=== PATIENT | female | born 1960 | race Caucasian/White ===

== ENCOUNTER 2017-03-23 01:43 | Inpatient (IN) ==
[2017-03-16 12:01] LABS: URINE MICRO REVIEW NEEDED? NO; URINE SOURCE CLEAN CATCH
[2017-03-16 12:01] LABS: MANUAL DIFF NEEDED? NO
--- NOTE | 2017-03-16 12:07 | EKG Report ---
Test Performed on : 03/16/2017 11:01:47 AM Test Reason : PAT Blood Pressure : / mmHG Vent. Rate : 079 BPM Atrial Rate : 079 BPM P-R Int : 160 ms QRS Dur : 084 ms QT Int : 388 ms P-R-T Axes : 051 066 073 degrees QTc Int : 444 ms Normal sinus rhythm. Normal ECG When compared with ECG of 06-MAY-2015 15:12, Nonspecific T wave abnormality in AVL Persistant T wave inversion in V1-V2 - no change Confirmed by Roland Thompson DO ([id number]) on 03/16/2017 6:04:24 PM
[2017-03-16 12:10] LABS: BASO% 0.4 % (0.0-0.8); EOS# 0.03 X1000 (0.0-0.7); EOS% 0.5 % (0.0-10.0); HEMATOCRIT 37.4 % (37.0-47.0); HEMOGLOBIN 12.4 g/dL (12.0-16.0); LYMPH% 21.2 % (20.5-51.1); MCH 32.2 PG (27-31); MCHC 33.2 g/dL (33-37); MCV 97.1 FL (81-99); MONO# 0.89 X1000 (0.11-0.59); MONO% 15.7 % (1.7-9.3); MPV 8.5 FL (7.4-10.4); NEUT% 62.2 % (42.2-75.2); PLT 303 X1000 (130-400); RBC 3.85 XMIL (4.2-5.4)
[2017-03-16 12:13] LABS: BILIRUBIN URINE NEGATIVE (NEGATIVE); BLOOD URINE NEGATIVE (NEGATIVE); COLOR STRAW; GLUCOSE URINE NEGATIVE (NEGATIVE); LEUKOCYTES URINE NEGATIVE (NEGATIVE); NITRITE URINE NEGATIVE (NEGATIVE); PROTEIN URINE NEGATIVE (NEGATIVE); SP GRAVITY URINE 1.006; TURBIDITY URINE CLEAR (CLEAR); UROBILINOGEN URINE NORMAL (NORMAL)
[2017-03-16 12:14] LABS: UR EPITHELIAL CELLS <10 /HPF (<10); URINE BACTERIA NEGATIVE /HPF; URINE RBC <10 /HPF (<10); URINE WBC <10 /HPF (<10)
[2017-03-16 12:28] LABS: AGAP 11; BUN 11 mg/dL (8-22); CALCIUM 8.9 mg/dL (8.8-10.2); CHLORIDE 98 mmol/L (98-107); COSMO 278; SODIUM 140 mmol/L (136-145); TCO2 31 mmol/L (25-35)
[2017-03-16 16:46] LABS: INR 0.96; PTT 24.1 Seconds (22.0-36.0)
[2017-03-23] MEDS ORDERED: COLACE ONE (06:51)
[2017-03-23] MEDS ORDERED: REGLAN ONE (06:52)
[2017-03-23] MEDS ORDERED: PEPCID ONE (06:52)
[2017-03-23] MEDS ORDERED: KEFZOL 1 GM/D5W 1 GM/50 ML IVPB ONE (06:52)
[2017-03-23] MEDS ORDERED: CELEBREX ONE (06:52)
[2017-03-23] MEDS ORDERED: LYRICA ONE (06:52)
[2017-03-23] MEDS ORDERED: LR 1,000 ML ONE ×2 (06:52→07:23)
[2017-03-23] MEDS ORDERED: DIPRIVAN 1% 500 MG/50 ML BOTTLE ONE (07:09)
[2017-03-23] MEDS ORDERED: XYLOCAINE-MPF 2% ONE (07:17)
[2017-03-23] MEDS ORDERED: SODIUM CHLORIDE 0.9% ONE (07:22)
[2017-03-23] MEDS ORDERED: TORADOL ONE (07:22)
[2017-03-23] MEDS ORDERED: DURAMORPH ONE (07:22)
[2017-03-23] MEDS ORDERED: CYKLOKAPRON 1,000 MG/NS 1,000 MG/100 ML IVPB ONE ×2 (07:22→07:24)
[2017-03-23] MEDS ORDERED: VANCOMYCIN ONE (07:22)
[2017-03-23] MEDS ORDERED: MARCAINE 0.25% PF ONE (07:22)
[2017-03-23] MEDS ORDERED: EXPAREL 1.3% ONE (07:23)
[2017-03-23] MEDS ORDERED: NEOSPORIN G.U. IRRIGANT ONE (07:23)
[2017-03-23] MEDS ORDERED: FENTANYL ONE (07:25)
[2017-03-23] MEDS ORDERED: BYSTOLIC PO ONE (07:30)
[2017-03-23] MEDS ORDERED: ROBINUL ONE (09:29)
[2017-03-23] MEDS ORDERED: OFIRMEV 1000 MG/ISOTONIC SOLN 1,000 MG/100 ML BOTTLE ONE (09:41)
[2017-03-23 09:50] LABS: URINE CULTURE NEEDED? NO; URINE MICRO REVIEW NEEDED? NO; URINE SOURCE CATH
[2017-03-23] MEDS ORDERED: ZOFRAN ONE (09:50)
[2017-03-23] MEDS ORDERED: DECADRON ONE (09:50)
[2017-03-23 09:53] LABS: BILIRUBIN URINE NEGATIVE (NEGATIVE); BLOOD URINE NEGATIVE (NEGATIVE); COLOR STRAW; GLUCOSE URINE NEGATIVE (NEGATIVE); LEUKOCYTES URINE NEGATIVE (NEGATIVE); NITRITE URINE NEGATIVE (NEGATIVE); PH URINE 6.5; PROTEIN URINE NEGATIVE (NEGATIVE); SP GRAVITY URINE 1.002; TURBIDITY URINE CLEAR (CLEAR); UROBILINOGEN URINE NORMAL (NORMAL)
[2017-03-23 09:54] LABS: UR EPITHELIAL CELLS <10 /HPF (<10); URINE BACTERIA NEGATIVE /HPF; URINE RBC <10 /HPF (<10); URINE WBC <10 /HPF (<10)
[2017-03-23] MEDS ORDERED: NS 1,000 ML ONE (10:36)
[2017-03-23] MEDS ORDERED: MORPHINE ONE (11:00)
[2017-03-23] MEDS ORDERED: PHENERGAN ONE (11:04)
--- NOTE | 2017-03-23 11:21 | Diag Imaging Result Doc PS360 ---
EXAM: KNEE 1-2 VIEWS-LEFT HISTORY: right total knee TECHNIQUE: Right knee AP and lateral portable at 1102 COMMENT: There is been total knee arthroplasty. There appears to be appropriate alignment and otherwise there is no evidence of acute bony disease. IMPRESSION: Postsurgical change. Electronically signed by Zeke Yoo 03/23/2017 11:19 AM
[2017-03-23] MEDS ORDERED: MILK OF MAGNESIA PO PRN (12:15)
[2017-03-23] MEDS ORDERED: ZOFRAN IV PRN (12:15)
[2017-03-23] MEDS ORDERED: ZOFRAN PO PRN (12:15)
[2017-03-23] MEDS: TYLENOL PO SCH ×3 (14:02→21:59)
[2017-03-23] MEDS: OXY IR PO PRN ×2 (14:03→21:59)
[2017-03-23] MEDS: COZAAR PO SCH (14:03)
[2017-03-23] MEDS: ALDACTONE PO SCH (14:03)
[2017-03-23] MEDS: NS 1,000 ML IV SCH ×2 (14:03→21:58)
[2017-03-23] MEDS: EFFEXOR PO SCH ×3 (14:03→22:03)
[2017-03-23] MEDS: CATAPRES PO SCH ×3 (14:10→22:03)
--- NOTE | 2017-03-23 15:23 | OPERATIVE NOTE ---
PROCEDURE DATE: 03/23/2017 PREOPERATIVE DIAGNOSIS: Degenerative osteoarthritis of the right knee. POSTOPERATIVE DIAGNOSIS: Degenerative osteoarthritis of the right knee. PROCEDURE: Right total knee arthroplasty with DePuy Attune, size 5 narrow posterior stabilized femur, size 4 tibial tray, a 7 mm rotating platform tibial insert, and a 32 mm medialized anatomic patella. SURGEON: Shahbaz Martinez MD. TECHNOLOGY RECRUITER: Neftali Ocampo. SECOND TECHNOLOGY RECRUITER: Luis Carlos Logan. ANESTHESIA: Spinal. IV FLUIDS: Lactated Ringer's 2000 mL. ESTIMATED BLOOD LOSS: 20 mL. TOURNIQUET TIME: 75 minutes at 350 mmHg. COMPLICATIONS: None. INDICATION: The patient is a 56-year-old female with chronic history of pain to her right knee. Continued pain and discomfort, despite appropriate treatment. Radiographic studies revealed findings consistent with osteoarthritis. Recommendation to proceed with right total knee arthroplasty was offered. Risks and benefits of surgery were explained, including the risks of anesthesia, , bleeding, infection, failure to relieve pain, postoperative stiffness, nerve injury, blood clots, and other imponderables. All questions answered. The patient wished to proceed with surgery. DETAIL OF OPERATION: The patient was taken to the operating room, underwent spinal anesthesia. After adequate anesthesia was obtained, the patient placed supine on the operating table. Right lower extremity was subsequently prepped and draped in the usual sterile fashion. Esmarch was used to exsanguinate the right lower extremity. The tourniquet was inflated to 350 mmHg. A standard anterior incision made with skin knife. Medial and skin envelopes were developed. Standard medial parapatellar arthrotomy was then performed. Patella fat pad was excised. Retractor was then placed. Approximately 1 cm anterior to the PCL insertion, starting reamer was passed. Intramedullary guide with a distal femoral cutting block was pinned in position. Distal femoral cut was then performed in standard fashion. A sizing block was placed and measured size 5. Corresponding pins were placed. Anterior, posterior and chamfer cuts were then made. Attention then turned to the proximal tibia, where further resection of the ACL and PCL was performed. Using the extramedullary guide, the proximal tibia cutting block was pinned in position. I had good alignment confirmed with the alignment gera. The proximal tibia was then resected. A curved osteotome was used to remove the posterior osteophytes. A spacer block was placed, and had good soft tissue balance in both flexion and extension. Attention then turned to the proximal tibia once again. A size 4 tibial tray appeared to correct size. Corresponding pins were placed. This was followed by a central reamer and a fin punch. The box-cutting guide was pinned on the distal femur and a box cut was performed. A trial femoral component was then placed, and 2 lug holes were drilled. Trial tibial insert was placed and had good soft tissue balance. The patella was everted and resected in standard fashion. A 32 appeared to be the correct size. Corresponding holes were drilled. The trial patella component was then placed in position, and had good patellofemoral tracking. The trial components were then removed. Copious irrigation was then performed with antibiotic pulsatile lavage, while vancomycin was mixed with cement on the back table. Sequential cementing was then performed, first the tibial tray and excess cement was removed with the Ramona, followed by the femoral component. Excess cement was removed with a Ramona. A trial tibial insert was then placed, and axial loading and full extension were maintained while cement cured. The patella component was cemented in standard fashion. Patella clamp was placed. After cement had cured, peripheral cement was removed with a small osteotome. The 7 mm rotating platform tibial insert appeared to be correct size. Also, while the cement was curing, Exparel was placed in the deep soft tissue, as well as subcutaneous tissue. The trial tibial insert was then removed and the Exparel was then placed in the posterior capsule. Copious irrigation then performed with antibiotic pulsatile lavage. A 7 mm rotating platform tibial insert was then placed. After this had been performed, the knee was then carried through range of motion and had good soft tissue balance and good range of motion. A 1/8 Hemovac drain was placed, but was not sewn in. Copious irrigation was performed once again with antibiotic pulsatile lavage. A #1 Vicryl was used to repair the arthrotomy, followed by 2-0 Vicryl to repair the subcutaneous tissue and skin hany. Adaptic, sterile 4x4's, Webril, cryo unit and Yemi wrap were applied to the right lower extremity. The patient tolerated the procedure well, no complications. Transferred to recovery room in stable conditions. cc: Shahbaz Martinez MD
[2017-03-23] MEDS ORDERED: KEFZOL 1 GM/D5W 1 GM/50 ML IVPB IV SCH (16:30)
[2017-03-23] MEDS ORDERED: NS 1,000 ML IV SCH (16:45)
[2017-03-23] MEDS: KEFZOL 1 GM/D5W 1 GM/50 ML IVPB IV SCH (16:46)
[2017-03-23] MEDS: DEPAKOTE ER PO SCH ×2 (19:00→21:58)
[2017-03-23] MEDS: BUSPAR PO SCH ×2 (19:00→21:58)
[2017-03-23] MEDS: PATIENT'S OWN MED PO SCH ×2 (19:01→19:03)
[2017-03-23] MEDS: KLONOPIN PO SCH ×2 (19:01→21:59)
[2017-03-23] MEDS ORDERED: AMBIEN PO SCH (21:00)
[2017-03-23] MEDS ORDERED: SEROQUEL PO SCH (21:00)
[2017-03-23] MEDS: COLACE PO SCH (21:59)
[2017-03-23] MEDS: PERIDEX MT SCH (22:00)
[2017-03-24] MEDS: KEFZOL 1 GM/D5W 1 GM/50 ML IVPB IV SCH (00:22)
[2017-03-24] MEDS: NS 1,000 ML IV SCH ×2 (03:55→11:47)
[2017-03-24] MEDS: TYLENOL PO SCH ×3 (03:55→11:55)
[2017-03-24 05:19] LABS: HEMATOCRIT 30.7 % (37.0-47.0)
[2017-03-24 05:39] LABS: AGAP 11; BUN 10 mg/dL (8-22); CALCIUM 8.8 mg/dL (8.8-10.2); CHLORIDE 101 mmol/L (98-107); COSMO 279; POTASSIUM 4.8 mmol/L (3.5-5.1); SODIUM 140 mmol/L (136-145); TCO2 28 mmol/L (25-35)
[2017-03-24] MEDS ORDERED: XARELTO PO SCH ×2 (06:00→09:00)
[2017-03-24] MEDS: OXY IR PO PRN ×3 (06:00→14:45)
[2017-03-24] MEDS ORDERED: FLEXERIL PO PRN (07:25)
--- NOTE | 2017-03-24 07:51 | PROGRESS NOTE ---
DATE: 03/24/2017 SUBJECTIVE: The patient is a pleasant 56-year-old female who is one day status post right total knee arthroplasty. She is currently resting comfortably and was complaining some periodic twitching of her muscles. She has no other complaints other than some mild discomfort in the posterior aspect of her knee. OBJECTIVE: On physical exam, patient's right lower extremity dressing is intact. Calf is soft. She is neurovascularly intact distally. She has active dorsiflexion and plantar flexion. Her hemoglobin is 10.0 and hematocrit is 30.7. IMPRESSION: Postop day #1 status post right total knee arthroplasty. PLAN: At this time, we will discontinue her drain and Han. We will also change her dressing. The patient will Hep-Lock her IV. We will discharge home later today if she is mobilizing well with physical therapy. We will also add Flexeril for muscle spasms. cc: Shahbaz Martinez MD
[2017-03-24] MEDS: CATAPRES PO SCH ×2 (08:30→14:46)
[2017-03-24] MEDS: COZAAR PO SCH (08:30)
[2017-03-24] MEDS: PERIDEX MT SCH (08:30)
[2017-03-24] MEDS: COLACE PO SCH (08:30)
[2017-03-24] MEDS: BUSPAR PO SCH (08:30)
[2017-03-24] MEDS: DEPAKOTE ER PO SCH (08:30)
[2017-03-24] MEDS: EFFEXOR PO SCH ×2 (08:30→14:46)
[2017-03-24] MEDS ORDERED: BYSTOLIC PO SCH ×2 (09:00→12:00)
[2017-03-24] MEDS ORDERED: PEPCID PO SCH (09:00)
[2017-03-24 11:37] VITALS: BP 164/58
[2017-03-24] MEDS: KLONOPIN PO SCH (11:53)
[2017-03-24] MEDS: ALDACTONE PO SCH (11:54)
[2017-03-24] MEDS: MORPHINE IV PRN ×2 (11:56→16:03)
[2017-03-24] MEDS: PATIENT'S OWN MED PO SCH (12:02)
== END 2017-03-24 16:25 | disposition home health service (06) ==
LOC: SURHOLD 01:43 → 4N 09:38
PROVIDERS: ADMIT Orthopaedic Surgery Adult Reconstructive Orthopaedic Surgery; ATTEND Orthopaedic Surgery Adult Reconstructive Orthopaedic Surgery